=== PATIENT | male | born 1980 | race Caucasian/White ===

== ENCOUNTER 2016-07-24 16:28 | Emergency (ER) | payer MEDICAID ==
[~2016-07-24] VITALS: Wt 97.0 kg
[~2016-07-24 16:28] MED LIST: CEPH-443 PO; HYDR-906 PO; NAPR-688 PO
[2016-07-24] MEDS ORDERED: ELIM TOP (16:48)
[2016-07-24] MEDS ORDERED: BEN25 PO (16:48)
[2016-07-24] MEDS ORDERED: HC30CR25 TOP (16:50)
--- NOTE | 2016-07-24 16:57 | ERD ---
ER Documentation Chief Complaint Date/Time DATE: 07/24/16 TIME: 16:53 Chief Complaint RASH ALLOVER BODY X1WEEK HPI Patient is a 36-year-old male with no past medical history who presents to the ED with a rash on his arms legs abdomen and back for the last 2 weeks. He states that he went to a clinic and was given prednisone for 5 days as well as Benadryl. He states that the prednisone helped minimally however he states that he still has the rash. He states that the rash is itchy. He states that it comes and goes and is primarily located on his arms, chest, back and legs. He denies pain or drainage from the sites. She denies shortness of breath or difficulty breathing. He denies headache or dizziness. Denies recent travel, change in foods. He states that no one else in his family has these symptoms. He denies shortness of breath or difficulty breathing. He denies fever or chills. He denies blurry vision. No other complaints. ROS All systems reviewed and are negative except as per history of present illness. Medications Home Meds Active Scripts Hydrocortisone* Topical (Hydrocortisone* Topical) 2.5%-28.3 Gm Cream..g., 1 APPLIC TOP BID, #1 TUB Prov:ANDRAE WICK-C 07/24/16 Diphenhydramine Hcl* (Benadryl*) 25 Mg Cap, 25 MG PO Q6, #30 CAP Prov:ANDRAE WICK-C 07/24/16 Permethrin* (Elimite*) 5% Cr, 1 APPLIC TOP ONCE for 7 Days, TUB Prov:ANDRAE WICK-C 07/24/16 Cephalexin* (Keflex*) 500 Mg Capsule, 500 MG PO Q8, #21 CAP Prov:ANNETTE HERR DO 12/19/15 Hydrocodone/Acetaminophen ([place] 5-325 Tablet) 1 Each Tablet, 1 EACH PO Q6, #20 TAB Prov:ANNETTE HERR DO 12/19/15 Naproxen* (Naproxen*) 500 Mg Tablet, 500 MG PO BID, #20 TAB Prov:ANNETTE HERR DO 12/19/15 Reported Medications [none] Unknown Strength No Conflict Check 12/19/15 Allergies Allergies: Coded Allergies: No Known Allergy (Unverified , 12/19/15) PMhx/Soc History of Surgery: No Anesthesia Reaction: No Hx Neurological Disorder: No Hx Respiratory Disorders: No Hx Cardiac Disorders: No Hx Psychiatric Problems: No Hx Miscellaneous Medical Probl: No Hx Alcohol Use: Yes (6 cans of beer daily) Hx Substance Use: No Hx Tobacco Use: No FmHx Family History: No coronary disease, No diabetes, No other Physical Exam Vitals Vital Signs Date Time Temp Pulse Resp B/P Pulse Ox O2 Delivery O2 Flow Rate FiO2 07/24/16 16:30 98.0 96 18 150/103 97 Physical Exam GENERAL: Well-developed, well-nourished male. Appears in no acute distress. HEAD: Normocephalic, atraumatic. EYES: Pupils are equally reactive bilaterally. EOMs grossly intact. No conjunctival erythema. ENT: Moist mucous membranes. No uvula deviation. No kissing tonsils. No exudates. NECK: Supple. No lymphadenopathy or thyromegaly. No meningismus. negative kernig. negative brudinski. LUNG: Clear to auscultation bilaterally. No rhonchi, wheezing, rales or coarse breath sounds. HEART: Regular rate and rhythm. No murmurs, rubs or gallops. Extremities: Equal pulses bilaterally. No peripheral clubbing, cyanosis or edema. No unilateral leg swelling. NEUROLOGIC: Alert and oriented. Moving all four extremities. 5/5 strength in all extremities. Normal speech. Steady gait. SKIN: Normal color. Warm and dry. Small erythematous bites on legs, arms and chest. Few crusted lesions. No drainage. No streaking. Capillary refill < 2 seconds Procedures/MDM ER COURSE: I kept the patient and/or family informed of laboratory and diagnostic imaging results throughout the emergency room course. MEDICAL DECISION MAKING: This is a 36-year-old male who presents with rash 2 weeks. Vital signs were reviewed. Patient is afebrile. Patient is not hypoxic. Patient is not toxic or ill-appearing. Patient's rash is of unknown etiology likely bedbugs versus insect bite versus allergic reaction. I will not be prescribing prednisone again as patient just finished a course of steroids. Low suspicion for necrotizing fasciitis, SJS, toxic epidermal necrolysis, Kawasaki, erythema multiforme, gangrene, scarlet fever, meningococcemia, sepsis, anaphylaxis, deep space infection, or foreign body. Patient's blood pressure is also slightly elevated to 150/103. Patient does have a history of hypertension and has previously had higher blood pressure reading. He states that he is attempting to decrease his blood pressure by exercising more. He denies any headache or dizziness or chest pain. Low suspicion for intracranial hemorrhage, meningitis , intracranial mass, concussion, temporal arteritis, stroke, elevated intracranial pressure, seizure. I have low suspicion for hypertensive urgency, emergency or endorgan damage. DISCHARGE: At this time, patient is stable for discharge and outpatient management with no new complaints during the ER course. Patient was sent home with permethrin, Benadryl and hydrocortisone cream. I advised patient to wash all sheets in hot water and vacuum surrounding areas. Patient to follow-up with primary care.. Patient will be discharged home with instructions to recheck for new or worsening symptoms such as fever, nausea, weakness, LOC and to follow up with primary care in the next 1-2 days. Patient was advised to return to the ER for any new or worsening symptoms. Plan was discussed and patient and/or family understands and agrees. Home instructions were given. Departure Diagnosis: Primary Impression: Rash Condition: Stable Patient Instructions: Self-Care for Skin Rashes, Insect Bites and Stings, Bedbug Bites Referrals: [facility] () Usted se hopkins hecho un examen mdico de control que le indica que no est en leora condicin que requiera tratamiento urgente en el Departamento de Emergencia. Un estudio ms profundo y el tratamiento de le condicin pueden esperar sin ningn riesgo hasta que usted sea atendida/o en el consultorio de le mdico o leora cl reji. Es responsabilidad suya arreglar leora jarrett para el seguimiento del elsy. MANEJO DE CONDICIONES NO URGENTES EN EL FUTURO 1) Si usted tiene un mdico de atencin primaria: Usted debera llamar a le mdico de atencin primaria antes de venir al departamento de emergencia. Despus de las horas de consultorio, le doctor o le asociado/a est disponible por telfono. El mdico o enfermero de james en el servicio telefnico puede asesorarle por cara medio para atender el problema, o elsy contrario se puede programar leora jarrett. 2) Si usted no tiene un mdico de atencin primaria: Llame al mdico o clnica de referencia que aparece abajo terrance las horas de consultorio para hacer leora jarrett para que le vean. CLINICAS: [facility] [phone] [facility] [phone] [facility] [phone] [place] [address] [phone] [place] [address] [phone] [facility] [phone] [address] Additional Instructions: Llame al doctor MAANA y dameon leora JARRETT PARA DENTRO DE 1-2 LOW.Dgale a la secretaria que nosotros le instruimos hacer esta jarrett.Avise o llame si le condicin se empeora antes de la jarrett. Regresa aqui si peor o no mejor. ANDRAE WICK PA-C Jul 24, 2016 16:57
== END 2016-07-24 16:48 | disposition home or self-care (01) ==
LOC: FTE 16:28 → E/R 16:48
DX: R21 Rash and other nonspecific skin eruption (principal)
CPT/HCPCS: 99283